=== PATIENT | female | born 1950 | race Asian ===

== ENCOUNTER 2023-01-04 01:35 | Emergency (ER) | payer MEDICAID ==
[~2023-01-04] VITALS: Ht 152.4 cm; Wt 47.0 kg
[2023-01-04 02:51] LABS: BASOPHILS % 0.6 % (0.0-2.0); EOSINOPHILS % 2.3 % (0.0-5.0); HEMATOCRIT. 37.8 % (36.0-48.0); HEMOGLOBIN. 12.7 g/dL (12.0-16.0); LYMPHOCYTES % 44.8 % (20.0-50.0); MEAN CORPUSCULAR HEMOGLOBIN 31.8 pg (28.0-32.0); MEAN CORPUSCULAR VOLUME 94.8 fL (81.0-99.0); MEAN PLATELET VOLUME 9.6 fl (7.4-10.4); MONOCYTES % 7.8 % (2.0-8.0); NEUTROPHILS % 44.5 % (40.0-76.0); PLATELET 245 x1000/uL (130-400); RED BLOOD CELL COUNT 3.98 mill/uL (4.2-5.4); RED CELL DISTRIBUTION WIDTH 13.5 % (11.6-14.6)
[2023-01-04 02:55] LABS: PROTHROMBIN TIME 10.3 sec (9.6-11.0)
[2023-01-04 02:58] LABS: CHLORIDE 105 mEq/L (98-107)
[2023-01-04] MEDS ORDERED: ACETAMINOPHEN 325MG TABLET PO NR (05:45)
[2023-01-04 09:48] VITALS: BP 127/82
== END 2023-01-04 09:49 | disposition home or self-care (01) ==
LOC: ER 02:03
DX: M79.605 Pain in left leg (principal); I10 Essential (primary) hypertension; Z98.890 Other specified postprocedural states; Z88.2 Allergy status to sulfonamides
CPT/HCPCS: 36415; 73610; 73630; 80053; 85025; 85379; 85610; 93971; 99285; Z7610